=== PATIENT | male | born 1985 | race Caucasian/White ===

== ENCOUNTER → 2019-04-07 | Outpatient (CLI) | payer BC ==
--- NOTE | 2019-04-07 19:41 | REP ---
HISTORY: Pain after trauma four days ago. FINDINGS: The joint spaces are symmetric and relatively well maintained. There is no evidence of acute fracture or destructive osseous lesion. IMPRESSION: Negative. Electronically Signed by Ronald Sales DO 04/07/2019 07:50 P
== END ==
LOC: M LRY 18:46
PROVIDERS: ATTEND Nurse Practitioner Family
DX: M79.671 Pain in right foot (principal)